=== PATIENT | female | born 1955 | race Caucasian/White ===

== ENCOUNTER 2018-12-05 09:00 | Outpatient (CLI) | payer OTHER, SELFPAY ==
[2018-12-05 11:35] LABS: Cholesterol 204 mg/dL (50-200); HDL Cholesterol 48 mg/dL (40-60); LDL CHOLESTEROL 132 mg/dL (<100); TSH (W/Ref FT4) 2.69 uIU/mL (0.358-3.74); Triglyceride 97 mg/dL (30-150); Vitamin B12 454 pg/mL (193-986)
[2018-12-08 08:10] LABS: Vitamin D 25 Total 16.3 ng/ml (30-100)
== END 2018-12-05 09:20 ==
PROVIDERS: PCP Family Medicine; Visit Provider Family Medicine
DX: Z00.00 Encounter for general adult medical examination without abnormal findings (principal); I47.1 Supraventricular tachycardia; E55.9 Vitamin D deficiency, unspecified; K29.70 Gastritis, unspecified, without bleeding
CPT/HCPCS: 36415; 80061; 82306; 83721; 82607; 84443

== ENCOUNTER 2018-12-17 00:22 | Outpatient (CLI) | payer OTHER, SELFPAY ==
--- NOTE | 2018-12-17 08:20 | DI.MAMMO_ITS ---
SYMPTOM/DIAGNOSIS: SCREENING, Z12.31 MAMMOGRAMS: Mammograms were interpreted according to the usual protocol including computer analysis with CAD system, tomosynthesis and C view imaging. The breast tissue is of moderate radiodensity. There is no mass. There are no suspicious calcifications and there has been no significant interval change when compared with prior images. SUMMARY: No evidence of malignancy. Category 1. Yearly screening mammography is recommended. Breast density, Category B. SA ASSESSMENT OF FINDINGS: Negative. Category 1. Patient will receive a letter notifying them of these results. BI-RADS category B. There are scattered areas of fibroglandular density.
== END 2018-12-17 00:42 ==
PROVIDERS: PCP Family Medicine; Visit Provider Family Medicine
DX: Z12.31 Encounter for screening mammogram for malignant neoplasm of breast (principal)
CPT/HCPCS: 77063; 77067

== ENCOUNTER 2018-12-24 06:57 | Day surgery (SDC) | payer OTHER, SELFPAY ==
--- NOTE | 2018-12-24 06:55 | ENDO_ITS ---
Date of service: 12/24/18 Time of Service: 09:42 Endoscopy Report DATE OF PROCEDURE: 12/24/18 PRE-OP DIAGNOSIS: Colon Cancer Screening, Family history of colon cancer and GERD POST-OP DIAGNOSIS: same (Schatzki's ring, multiple polyps in the stomach) PROCEDURE: 1. EGD with biopsy 2. Colonoscopy SURGEON: Madelyn Martinez ANESTHESIA: other (General/ ASA 2/ Rose Monroy CRNA) ESTIMATED BLOOD LOSS: 3 PATHOLOGY: other (Gastric polyps, antrum bx, GE junction bx) COMPLICATIONS: None DISPOSITION: same day INDICATIONS: Mrs. Sandy is a pleasant 63 year old female who was seen in the office for a screening colonoscopy. her last Colonoscopy was in 2009 and was normal. She also has GERD and needs an EGD. Risks, benefits and complications have been reviewed. Complications include but are not limited to bleeding, pain, perforation, missed small lesion/polyp, sore throat, aspiration and adverse reaction to the medications. Questions were entertained and answered to their satisfaction and they wished to proceed. No guarantees were given or implied. PREP: Miralax/Dulcolax PROCEDURE START TIME: :42 PROCEDURE END TIME: 10:21 COLONOSCOPY RETRACTION TIME: 13 minutes FINDINGS: Multiple benign polyps in the stomach most likely from PPI use Schatzki's ring and small hiatal hernia Normal duodenum Normal colon PROCEDURE DESCRIPTION: After informed consent was obtained the patient was take to the procedure room and placed in a supine position. Monitors were applied and a time out was done. The patients name, date of , procedure type, allergies to medications and metal in their body was reviewed. A bite block was placed and the patient was sedated. Once sedated and comfortable the gastroscope was advanced through the oropharynx which was grossly normal into the esophagus. The proximal and mid- esophagus were normal. In the distal esophagus there was a Schatzki's ring noted and a small hiatal hernia. The scope was advanced into the stomach and through the pylorus into the 3rd portion of the duodenum. The duodenum was noted to be normal. The scope was retracted back into the stomach and biopsies were done to rule out H. pylori. There were no ulcers. Multiple benign appearing polyps were noted in the stomach. 4 were biopsied. The scope was retro-flexed. The cardia and fundus were noted to be normal. There was a hiatal hernia noted. The scope was retracted back into the esophagus and biopsies were done of the GE junction to rule out Haas's. The Z line was regular. The GE junction was at 35 cm. The hiatal hernia was measured at approximately 3 cm. While the patient was still sedated they were placed in a left decubitous position. A rectal exam was done. External exam was normal. Internal exam revealed a normal sphincter tone and no palpable masses. The scope was then introduced and retro-flexed. No internal hemorrhoids were identified. The scope was then advanced to the cecum without difficulty. The TI and appendiceal orifice were identified. The prep was good. The scope was then slowly retracted over 13 minutes back into the rectum. The scope was removed and the patient was woken up and taken back to Same day surgery in stable condition. The patient tolerated the procedure well and there were no immediate complications. Follow up: Follow up in 5 years for a colonoscopy due to her family history of colon Cancer in her brother. No scheduled RGD unless she has new symptoms.
--- NOTE | 2018-12-24 06:55 | W.PM.DSUDISC ---
Discharge Plan Disposition Patient Disposition: HOME Condition: Good Discharge Details Reason For Visit: Colon Cancer Screening and GERD Attending Provider: Madelyn Martinez Primary Care Provider: Kirstie Nation Home Meds and New Rx's Prescriptions: Continued triamcinolone acetonide 15 GM cream 1 appful Topical BID PRNQty: 30 RF: 0 pantoprazole [Protonix] 40 mg tablet,delayed release (DR/EC) 40 mg PO DAILY Qty: 90 RF: 12 cholecalciferol (vitamin D3) 50,000 unit capsule 50,000 unit PO .three times week Qty: 36 RF: 0 Discontinued polyethylene glycol 3350 17 gram/dose Powder 3,350 g PO RF: 0 bisacodyl 5 mg Tablet 5 mg PO ONCE RF: 0 Discharge Instructions Instructions: Colonoscopy (DC), Upper Endoscopy (DC) Additional Instructions: Findings: benign polyps in the stomach, small hiatal hernia, evidence of scarring in the esophagus normal colonoscopy Follow up: 5 years for next colonoscopy Please call if you develop: fevers >101.5 Nausea or Vomiting Abdominal pain that is not transient DAY SURGERY UNIT POST COLONOSCOPY INSTRUCTIONS 1. Because there will be medication in your system for the next 24 hours, you may feel a little sleepy. Your coordination will be affected. Therefore: a. Do not drive or operate dangerous equipment for 24 hours. b. Do not drink alcohol beverages for 24 hours (not even beer). c. Plan to go home and rest for the day. 2. Generally there are no restrictions on your activity after a day or so has gone by, but you may feel a bit fatigued for a few days. 3 After you arrive home you may have a light meal and return to a normal diet as you can tolerate it without feeling sick to your stomach. 4. After surgery, you may feel pain or discomfort. This should be only transient, but if it persists please contact your doctor. 5. If there are any questions regarding the findings of your procedure, please feel free to contact your doctor. 6. If you are unable to contact your doctor with a problem, contact the hospital at [phone]. 7. Continue all your regular medications unless directed otherwise. I understand the above instructions and have no questions. Signature of Patient or Responsible Adult Escort Date/Time Name of Responsible Adult Escort Signature of Nurse Date/Time Stand Alone Forms: DSU Post EGD Instructions, Claudy Garcia (DSU) Activity:: Activity as Tolerated Diet:: As Tolerated Discharge Orders Discharge Orders: Discharge Order (Routine); Ordered 12/24/18 Ordered By: Madelyn Martinez DS: Diagnosis Discharge Diagnosis (1) H/O esophagogastroduodenoscopy: Status: Chronic (2) S/P colonoscopy: Status: Acute
[2018-12-24 07:18] VITALS: BP 142/94; PULSE 85; RESP 16; TEMP 36.8; O2SAT 93
[2018-12-24] MEDS: Lactated Ringers 1,000 ML 80 ML IV (07:41)
[2018-12-24] MEDS: Sodium Citrate 30 ML CUP (09:35)
--- NOTE | 2018-12-24 09:45 | STOM_PTH ---
PATIENT: Latricia Sandy LOC: [facility] U#:[id number] AGE/SX: 63/F ROOM: RE12/24/[address]: Madelyn Martinez MD : 1955 BED: DIS: 12/24/2018 SPEC #: [id number] RECD: 12/24/18 12:44 STATUS: LUZMA RE #: [id number] YOLIS: 12/24/18 09:[address]: Madelyn Martinez DEPT: Surgical Specimen RECD BY: Fiona Melton ENTERED: 12/24/18 12:46 SP TYPE: STOMACH OTHR DR: Kirstie Nation MD, DC Tissues: 1 - STOMACH BIOPSY 2 - STOMACH BIOPSY 3 - ESOPHAGUS BIOPSY Procedures: GROSS AND MICRO LEVEL 4 Comments: [id number]
[2018-12-24 11:00] VITALS: BP 154/82; PULSE 62; RESP 18; TEMP 36.6; O2SAT 94
== END 2018-12-24 11:26 | disposition home or self-care (01) ==
PROVIDERS: PCP Family Medicine; Visit Provider Surgery
PROC: (CPT 43239; principal; 2018-12-24 08:30)
DX: Z12.11 Encounter for screening for malignant neoplasm of colon (principal); Z80.0 Family history of malignant neoplasm of digestive organs; K21.9 Gastro-esophageal reflux disease without esophagitis; K20.9 Esophagitis, unspecified; K31.89 Other diseases of stomach and duodenum; K31.7 Polyp of stomach and duodenum; K44.9 Diaphragmatic hernia without obstruction or gangrene
CPT/HCPCS: 43239; 45378; 88305

== ENCOUNTER 2019-04-24 11:52 | Outpatient (REF) | payer OTHER, SELFPAY ==
--- NOTE | 2019-04-24 11:00 | PAPFT_PTH ---
PATIENT: Latricia Sandy LOC: [facility] U#:[id number] AGE/SX: 63/F ROOM: RE04/24/[address]: MORGAN Montoya : 1955 BED: DIS: 04/24/2019 SPEC #: [id number] RECD: 04/24/19 13:09 STATUS: LUZMA REIwona #: [id number] YOLIS: 04/24/19 11:[address]: Michelle Dickerson DEPT: [facility] Cytology RECD BY: Fiona Melton ENTERED: 04/24/19 13:09 SP TYPE: PAPFT OTHR DR: Kirstie Nation MD, DC Tissues: 1 - CX/ENDOCX FOR PAP SMEARS Procedures: PAP THIN PREP/UVM Screening HPV DNA PROBE Comments: [id number]
== END 2019-04-24 12:12 ==
LOC: LBN 11:52
PROVIDERS: PCP Family Medicine; Visit Provider Nurse Practitioner Family
DX: Z12.4 Encounter for screening for malignant neoplasm of cervix (principal); Z11.51 Encounter for screening for human papillomavirus (HPV)
CPT/HCPCS: 88142; 87624

== ENCOUNTER 2020-02-12 03:34 | Outpatient (CLI) | payer OTHER, SELFPAY ==
--- NOTE | 2020-02-12 06:45 | DI.MAMMO_ITS ---
EXAM: MG MAMMO SCREENING CLINICAL HISTORY: screening,Z12.39 TECHNIQUE: Bilateral full field digital CC and MLO mammographic images were obtained with 3D tomosyn thesis and utilizing computer aided detection (CAD). COMPARISON: Available for comparison. FINDINGS: Masses/Architectural Distortion: None seen. Microcalcifications: No suspicious pleomorphic-type are seen. Skin Thickening/Nipple Retraction: None. IMPRESSION: 1. No significant interval change with no specific features of malignancy noted. 2. Unless there is more urgent need, screening mammography is recommended, as per [place] [employer] guidelines. BI-RADS Category 1 - Negative Breast Density - Category B - Scattered areas of fibroglandular density A negative radiographic report should not delay biopsy if a dominant or clinically suspicious mass is present. Up to ten percent of cancers are not identified on mammography. A negative report may reinforce clinical impression. Adenosis and dense breasts may obscure an underlying neoplasm. False positive reports average 6 to 10%. Patient will receive a letter notifying them of these results.
== END 2020-02-12 03:54 ==
PROVIDERS: PCP Family Medicine; Visit Provider Family Medicine
DX: Z12.31 Encounter for screening mammogram for malignant neoplasm of breast (principal)
CPT/HCPCS: 77063; 77067

== ENCOUNTER 2020-11-21 03:44 | Outpatient (CLI) | payer OTHER, SELFPAY ==
[2020-11-21 14:36] LABS: Vitamin D 25 Total 32.5 ng/ml (30-100)
== END 2020-11-21 03:45 | disposition home or self-care (01) ==
LOC: LBO 03:44
PROVIDERS: PCP Family Medicine; Visit Provider Family Medicine
DX: E55.9 Vitamin D deficiency, unspecified (principal)
CPT/HCPCS: 36415; 82306

== ENCOUNTER 2021-02-17 01:51 | Outpatient (CLI) | payer OTHER, SELFPAY ==
--- NOTE | 2021-02-17 06:30 | DI.MAMMO_ITS ---
Exam(s) MAMMO SCREENING EXAM: MAMMO SCREENING CLINICAL HISTORY: screening.Z12.39 TECHNIQUE: Bilateral full field digital CC and MLO mammographic images were obtained with 3D tomosyn thesis and utilizing computer aided detection (CAD). COMPARISON: Available for comparison. FINDINGS: Masses/Architectural Distortion: None seen. Microcalcifications: No suspicious pleomorphic-type are seen. Skin Thickening/Nipple Retraction: None. IMPRESSION: 1. No significant interval change with no specific features of malignancy noted. 2. Unless there is more urgent need, screening mammography is recommended, as per [place] [employer] [employer] guidelines. BI-RADS Category 1 - Negative Breast Density - Category B - Scattered areas of fibroglandular density Breast density category C or D implies that the patient has dense breast tissue. Dense breast tissue is very common and is not abnormal but dense breast tissue can make it harder to find cancer on a ma mmogram. Also, dense breast tissue may increase their breast cancer risk. This information about the result of the mammogram report was provided to the patient to raise their awareness. Use this report when you speak with the patient about their risks for breast cancer, which includes their family hist ory. At that time, you may recommend for more screening tests (Ultrasound or MRI) as they might be us eful based on their risk. A negative radiographic report should not delay biopsy if a dominant or clinically suspicious mass is present. Up to ten percent of cancers are not identified on mammography. A negative report may reinforce clinical impression. Adenosis and dense breasts may obscure an underlying neoplasm. False positive reports average 6 to 10%. Patient will receive a letter notifying them of these results.
== END 2021-02-17 02:11 ==
PROVIDERS: PCP Family Medicine; Visit Provider Nurse Practitioner Family
DX: Z12.31 Encounter for screening mammogram for malignant neoplasm of breast (principal)
CPT/HCPCS: 77063; 77067

== ENCOUNTER 2022-03-16 01:20 | Outpatient (CLI) | payer OTHER, SELFPAY ==
--- OUTSIDE RECORDS SUMMARY | 2022-03-16 01:22 | XMS_ITS | Encounter Summary ---
:1955 Author Organization [facility] [place] [address] Care Team Providers Name Role Phone Kirstie Nation MD Primary Care Provider Reason for Visit Reason Onset Date Comments Public Health Screening 09/20/2020 test after kayla gallegos Encounter Details Date Type Department Care Team Description 09/20/2020 Telephone Public Health Katharine Harris, [facility] Health Screening [facility] RN (test aft er travel) [place] [address] Social History Tobacco Use Types Packs/Day Years Used Date Never Assessed Sex Assigned at Date Recorded Not on file documented as of this encounter Miscellaneous Notes Telephone Encounter - Katharine Sanchez RN - 09/20/2020 11:23 AM EST Telephone call placed/received to schedule covid 19 testing with patient. Ordering provider: Rolanda Rodgers Testing Facility: [facility] Date of Testin09/23/20 Time of Testin Symptoms: none / test after travel Is this the first test for Covid 19 No If no, please list date of previous test, result, and type of test (Molecular, Antigen, Antibody or unknown): 08/05/20 [facility] neg Resides in congregate care setting No Employee or Household Member of Employee Yes Healthcare Worker Yes documented in this encounter Plan of Treatment Not on filedocumented as of this encounter Visit Diagnoses Not on filedocumented in this encounter Care Teams Material Lister Relationship Specialty Start Date End Date Kirstie Nation MD PCP - General 01/12/[address] [place] [address] documented as of this encounter
--- OUTSIDE RECORDS SUMMARY | 2022-03-16 01:22 | XMS_ITS | Encounter Summary ---
:1955 Author Organization [facility] Address [address] [place] [address] Care Team Providers Name Role Phone Unknown, Provider Primary Care Provider Encounter Details Date Type Department Care Team Description 08/06/2001 Results Only [facility] - Consuelo Orellana NP conversion [address] [place] [address] Social History Tobacco Use Types Packs/Day Years Used Date Never Assessed Sex Assigned at Date Recorded Not on file documented as of this encounter Plan of Treatment Not on filedocumented as of this encounter Procedures Procedure Name Priority Date/Time Associated Diagnosis Comme nts CYTOPATHOLOGY Routine 08/06/2001 0:00 EST Results for this procedure are i n the results section . documented in this encounter Results CYTOPATHOLOGY (08/06/2001 0:00 EST) Pathology Report: CYTOPATHOLOGY REPORT [facility] Reports generated via electronic interface contain stacy ginal data; however they are lacking the format of the original re port. Caution should be taken when reading/interpreting unfo rmatted reports. Name: ? JENN SANDY ? Accession #: ? [id number] : ? 1955 (Age: 46) ??F ?Collect Date: ? 12/2000 Location: ? [facility] ? Receive Date : ? 08/07/2001 Provider: ?CONSUELO YUEN STAFF CYTOTECHNOLOGIST Copy to: ? Specimen/Source: ?ThinPrep Pap Test, Cervix/ Endocervix Last Menstrual Period: ? 07/28/01 Previous Gynecologic Pathology: ? Yes: 1994 atypia. Other: ? Additional clinical information: Asymptomatic cx polyp . ? SPECIMEN ADEQUACY ? Satisfactory for evaluation. GENERAL CATEGORIZATION ? Within Normal Limits ? Document reviewed and electronically signed by: ? Rose Duncan, [facility](ASCP) ? Report Date: ??08/11/2001 13:26 End of Report Specimen Performing Organization Address City/State/ZIP Code Phon e Number [facility] [address] [place] [address] SERVICES [facility] [address] [place] [address] documented in this encounter Visit Diagnoses Not on filedocumented in this encounter Care Teams Repair Table Operator Relationship Specialty Start Date End Date Unknown, Provider, PCP - General 07/01/09 documented as of this encounter
--- OUTSIDE RECORDS SUMMARY | 2022-03-16 01:22 | XMS_ITS | Encounter Summary ---
:[address] [facility] Address [address] [place] [address] Care Team Providers Name Role Phone Unknown, Provider Primary Care Provider Encounter Details Date Type Department Care Team Description 11/08/2014 Results Only [facility] Bing Coles, [address] [place] [address] [place], [place] [id number] (Wo rk) Social History Tobacco Use Types Packs/Day Years Used Date Never Assessed Sex Assigned at Date Recorded Not on file documented as of this encounter Plan of Treatment Not on filedocumented as of this encounter Procedures Procedure Name Priority Date/Time Associated Diagnosis Comme [facility] SURGICAL PATHOLOGY Routine 11/08/2014 9:20 EDT Re sults for this procedure are i n the results section. documented in this encounter Results SURGICAL PATHOLOGY (11/08/2014 9:20 EDT) Pathology Report: SURGICAL PATHOLOGY REPORT [facility] Reports generated via electronic interface conta in original data; [facility] however they are lacking the format of the original re port. SERVICES Caution should be taken when reading/interpreting unfo rmatted reports. Name: ? JENN SANDY ? Accession #: ? [id number] ? : ? 1955 (Age: 59) ??F ? Collect Date: ? 11/08/2014 ? Location: ? [facility] ? Receive Date: ? 015 ? Provider: BING BURROUGHS MD Copy to: KSENIA TAYLOR MD ? Final Pathologic Diagnosis: A. STOMACH, POLYP, BIOPSY: - ??Fragments of fundic gland polyp. - ??No evidence of Helicobacter pylori on H&E. B. GASTROESOPHAGEAL JUNCTION, BIOPSY: - ??Squamous mucosa with features of reflux esophagiti s. - ??Adjoining cardia type mucosa without diagnostic al teration. Document reviewed and electronically signed by: HITESH BROTHERS MD Report ??Date: 11/11/2014 09:25 By the signature above, the attending physician certif ies that he/she has personally conducted a gross and/or microscopic examin ation of the described specimens and rendered or confirmed the above diagnosi s. Specimen(s) Received: A. ??Gastric polyp B. ??GE junction Clinical History: Cramping, abdominal pain, nausea Gross Description: A. ?Received in formalin labelled with proper p atient identification (initials R, L) and gastric polyp is a single pink-macdonald tissue fragment (0.4 x 0.2 x 0.2 cm). Submitted intact in A1. B. ?Received in formalin labelled with proper p atient identification (initials R, L) and GE junc tion are two white tissues (0.4 x 0.2 x 0.2 cm and 0.7 x 0.3 x 0.2 cm). Entirely submitted in B1. Tamra Pichardo 11/09/2014 1:21 PM End of Report Specimen Performing Organization Address City/State/ZIP Code Phon e Number [facility] [address] [place] [id number] SERVICES documented in this encounter Visit Diagnoses Not on filedocumented in this encounter Care Teams Lead Shop Operator Relationship Specialty Start Date End Date Unknown, Provider, PCP - General 07/01/09 11/09/14 documented as of this encounter
--- OUTSIDE RECORDS SUMMARY | 2022-03-16 01:22 | XMS_ITS | Encounter Summary ---
:1955 Author Organization [facility] Address [address] [place] [address] Care Team Providers Name Role Phone Unknown, Provider Primary Care Provider Encounter Details Date Type Department Care Team Description 12/10/2011 Results Only [facility] Consuelo Grijalva, [facility] Laboratory Services - [address] [address] Social History Tobacco Use Types Packs/Day Years Used Date Never Assessed Sex Assigned at Date Recorded Not on file documented as of this encounter Plan of Treatment Not on filedocumented as of this encounter Procedures Procedure Name Priority Date/Time Associated Diagnosis Comme nts PAP TEST- RESULT Routine 12/10/2011 0:00 EDT Resu lts for this ONLY procedure are i n the results section. documented in this encounter Results PAP TEST- RESULT ONLY (12/10/2011 0:00 EDT) Pathology Report: CYTOPATHOLOGY REPORT [facility] Reports generated via electronic interface contain stacy ginal data; however they are lacking the format of the original re port. Caution should be taken when reading/interpreting unfo rmatted reports. Name: ? JENN SANDY ? Accession #: ? [id number] ? : ? 1955 (Age: 56) ??F ?Collect Da te: ? 12/10/2011 ? Location: ? [facility] ? Receive Date: ? 012 ? Provider: CONSUELO GRIJALVA CLINICAL MATERIAL HANDLER Copy to: KSENIA TAYLOR MD ? Final Report SPECIMEN ADEQUACY ? Satisfactory for Evaluation - transformation zone component present GENERAL CATEGORIZATION ? Negative for Intraepithelial Lesion or Malignan cy ?? Last Menstural Period: 12/10/11 Specimen/Source: ??Pap Test, Cervix/Endocervix, ThinPr ep Imaging System with manual evaluation Document reviewed and electronically signed by: ? Shahnaz Sharif, [place](ASCP) ? Report ??Date: 12/18/2011 10:06 HPV with Pap Test ? Date Ordered: ? 12/18/2011 ? Status: ?? Signed Out ?Date Complete: ? 12/20/2011 ? By: ??S ystem Interface ? Date Reported: ? 12/20/2011 ? Interpretation RESULT: Negative for HPV. No E6 or E7 mRNA is detected from HPV types 16,18,31,3 3,35, 39,45,51,52,56,58,59,66, and 68 by insurance sales assistant media roberto amplification. Comments Document reviewed and electronically signed by: ? System Interface ? Report date: 12/20/2011 By the signature above, the attending physician certif ies that he/she has personally conducted a gross and/or microscopic examin ation of the described specimens and rendered or confirmed the above diagnosi s. End of Report Specimen Performing Organization Address City/State/ZIP Code Phon e Number [facility] [address] [place] [address] SERVICES [facility] [address] [place] [address] documented in this encounter Visit Diagnoses Not on filedocumented in this encounter Care Teams Pattern Puncher Relationship Specialty Start Date End Date Unknown, Provider, PCP - General 07/01/09 11/09/14 documented as of this encounter
--- OUTSIDE RECORDS SUMMARY | 2022-03-16 01:22 | XMS_ITS | Encounter Summary ---
:1955 Author Organization [facility] [place] [address] Care Team Providers Name Role Phone Kirstie Nation MD Primary Care Provider Reason for Visit Reason Onset Date Comments Triage 08/01/2020 COVID for return to work Encounter Details Date Type Department Care Team Description 08/01/2020 Telephone [facility] Dayanara Wilson Triag e (COVID for return [facility] RN to work) [place] [address] Social History Tobacco Use Types Packs/Day Years Used Date Never Assessed Sex Assigned at Date Recorded Not on file documented as of this encounter Miscellaneous Notes Telephone Encounter - Dayanara Wilson RN - 08/01/2020 9:45 AM EST Telephone call placed/received to schedule covid 19 testing with patient. Ordering provider: Rolanda Rodgers APRN Testing Facility: [facility] Date of Testin08/05/20 Time of Testin Symptoms: asymptomatic-needs to return to work after travel Is this the first test for Covid 19 Yes If no, please list date of previous test, result, and type of test (Molecular, Antigen, Antibody or unknown): Resides in congregate care setting No Employee or Household Member of Employee Yes, employee Healthcare Worker Yes documented in this encounter Plan of Treatment Not on filedocumented as of this encounter Visit Diagnoses Not on filedocumented in this encounter Care Teams Elevator Serviceman Relationship Specialty Start Date End Date Kirstie Nation MD PCP - General 01/12/[address] [place] [address] documented as of this encounter
--- OUTSIDE RECORDS SUMMARY | 2022-03-16 01:22 | XMS_ITS | Encounter Summary ---
:1955 Author Organization [facility] Address [address] [place] [address] Care Team Providers Name Role Phone Unknown, Provider Primary Care Provider Encounter Details Date Type Department Care Team Description 12/11/2004 Results Only [facility] - Michelle Santoyo od, ENVIRONMENTAL PLANNER [address] [place] [phone] (Wo rk) Social History Tobacco Use Types Packs/Day Years Used Date Never Assessed Sex Assigned at Date Recorded Not on file documented as of this encounter Plan of Treatment Not on filedocumented as of this encounter Procedures Procedure Name Priority Date/Time Associated Diagnosis Comme nts CYTOPATHOLOGY Routine 12/11/2004 0:00 EDT Results for this procedure are i n the results section . documented in this encounter Results CYTOPATHOLOGY (12/11/2004 0:00 EDT) Pathology Report: CYTOPATHOLOGY REPORT [facility] Reports generated via electronic interface contain stacy ginal data; however they are lacking the format of the original re port. Caution should be taken when reading/interpreting unfo rmatted reports. Name: ? LATRICIA SANDY ? Accession #: ? [id number] : ? 1955 (Age: 49) ??F ?Collect Date: ? 12/01 Location: ? [facility] ? Receive Date : ? 12/12/2004 Provider: ?MICHELLE CEDENO ENVIRONMENTAL PLANNER Copy to: ? Specimen/Source: ?ThinPrep Pap Test, Cervix/ Endocervix Last Menstrual Period: ? 11/28/04 Other: ? Additional clinical information: 1993 Atypia - Cervica l polyp HPVA - HPV testing requested if ASC-US on the current ThinPrep Pap test. ? SPECIMEN ADEQUACY ? Satisfactory for Evaluation - transformation zone component absent GENERAL CATEGORIZATION ? Negative for Intraepithelial Lesion or Malignan cy ? Document reviewed and electronically signed by: ? BLAS Madrid(ASCP) ? Report Date: ??12/18/2004 08:33 End of Report Specimen Performing Organization Address City/State/ZIP Code Phon e Number [facility] [address] [place] [address] SERVICES [facility] [address] [place] [address] documented in this encounter Visit Diagnoses Not on filedocumented in this encounter Care Teams Heavy Equipment Operator Relationship Specialty Start Date End Date Unknown, Provider, PCP - General 07/01/09 11/09/14 documented as of this encounter
--- OUTSIDE RECORDS SUMMARY | 2022-03-16 01:22 | XMS_ITS | Encounter Summary ---
:1955 Author Organization [facility] Address [address] [place] [address] Care Team Providers Name Role Phone Unknown, Provider Primary Care Provider Encounter Details Date Type Department Care Team Description 11/08/2014 Hospital Encounter [facility]- Vicky Unknown, Provider, [facility] [address] [place] [address] [place] [address] (Work) [phone] Social History Tobacco Use Types Packs/Day Years Used Date Never Assessed Sex Assigned at Date Recorded Not on file documented as of this encounter Discharge Disposition Disposition Code Departure Means Destination Home or Self Snf documented in this encounter Plan of Treatment Not on filedocumented as of this encounter Visit Diagnoses Not on filedocumented in this encounter Care Teams Plumber Relationship Specialty Start Date End Date Unknown, Provider, PCP - General 07/01/09 documented as of this encounter
--- OUTSIDE RECORDS SUMMARY | 2022-03-16 01:22 | XMS_ITS | Encounter Summary ---
:1955 Author Organization [facility] Address [address] [place] [address] Care Team Providers Name Role Phone Unknown, Provider Primary Care Provider Encounter Details Date Type Department Care Team Description 08/10/2002 Results Only [facility] - Consuelo Orellana NP conversion [address] [place] [address] Social History Tobacco Use Types Packs/Day Years Used Date Never Assessed Sex Assigned at Date Recorded Not on file documented as of this encounter Plan of Treatment Not on filedocumented as of this encounter Procedures Procedure Name Priority Date/Time Associated Diagnosis Comme nts CYTOPATHOLOGY Routine 08/10/2002 0:00 EST Results for this procedure are i n the results section . documented in this encounter Results CYTOPATHOLOGY (08/10/2002 0:00 EST) Pathology Report: CYTOPATHOLOGY REPORT [facility] Reports generated via electronic interface contain stacy ginal data; however they are lacking the format of the original re port. Caution should be taken when reading/interpreting unfo rmatted reports. Name: ? JENN SANDY ? Accession #: ? [id number] : ? 1955 (Age: 47) ??F ?Collect Date: ? 0 05/2002 Location: ? [facility] ? Receive Date : ? 08/11/2002 Provider: ?CONSUELO YUEN FENDER FINISHER Copy to: ? Specimen/Source: ?ThinPrep Pap Test, Cervix/ Endocervix Last Menstrual Period: ? 07/30/02 Previous Gynecologic Pathology: ? Yes: 1993 atypia cervical polyp ? SPECIMEN ADEQUACY ? Satisfactory for Evaluation - transformation zone component present GENERAL CATEGORIZATION ? Negative for Intraepithelial Lesion or Malignan cy ? Document reviewed and electronically signed by: ? BLAS Hooker(ASCP) ? Report Date: ??08/12/2002 08:58 End of Report Specimen Performing Organization Address City/State/ZIP Code Phon e Number [facility] [address] [place] [address] SERVICES [facility] [address] [place] [address] documented in this encounter Visit Diagnoses Not on filedocumented in this encounter Care Teams Employee Benefits Attorney Relationship Specialty Start Date End Date Unknown, Provider, PCP - General 07/01/09 11/09/14 documented as of this encounter
--- OUTSIDE RECORDS SUMMARY | 2022-03-16 01:22 | XMS_ITS | Encounter Summary ---
:1955 Author Organization [facility] Address [address] [place] [address] Care Team Providers Name Role Phone Kirstie Nation MD Primary Care Provider Encounter Details Date Type Department Care Team Description 04/24/2019 Results Only [facility]- Michelle Baca, [facility] [phone] [facility] [address] (Wo rk) Social History Tobacco Use Types Packs/Day Years Used Date Never Assessed Sex Assigned at Date Recorded Not on file documented as of this encounter Plan of Treatment Not on filedocumented as of this encounter Procedures Procedure Name Priority Date/Time Associated Diagnosis Comme nts PAP TEST- RESULT Routine 04/24/2019 0:00 EDT Resu lts for this ONLY procedure are i n the results section. documented in this encounter Results PAP TEST- RESULT ONLY (04/24/2019 0:00 EDT) Pathology Report: CYTOPATHOLOGY REPORT [facility] Reports generated via electronic interface contain stacy ginal data; SERVICES however they are lacking the format of the original re port. Caution should be taken when reading/interpreting unfo rmatted reports. Name: ? JENN SANDY ? Accession #: ? [id number] ? : ? 1955 (Age: 63) ??F ?Collect Date: ? 04/24/2019 ? Location: ? [facility] ? Receive Date: ? 04/27/20 19 ? Provider: MICHELLE CEDENO LINUX NETWORK SYSTEMS ADMINISTRATOR Copy to: KIRSTIE NATION MD ? Final Report SPECIMEN ADEQUACY ? Satisfactory for Evaluation - assessment of transformation zone component not appl icable ( e.g. atrophy, vaginal sample, hysterectomy) GENERAL CATEGORIZATION ? Negative for Intraepithelial Lesion or Malignan cy ?? Last Menstrual Period: 2011 Specimen/Source: ??Pap Test, Cervix, ThinPrep Imaging System with manual evaluation Document reviewed and electronically signed by: ? Shahnaz Sharif, [place](ASCP) ? Report ??Date: 04/29/2019 11:31 HPV with Pap Test ? Date Ordered: ? 04/29/2019 ? Status: ?? Signed Out ?Date Complete: ? 04/30/2019 ? By: ??Sy stem Interface ? Date Reported: ? 04/30/2019 ? Interpretation RESULT: Negative for HPV. No E6 or E7 mRNA is detected from HPV types 16,18,31,3 3,35, 39,45,51,52,56,58,59,66, and 68 by tongue and groove machine setter media roberto amplification. Comments Document reviewed and electronically signed by: ? System Interface ? Report date: 04/30/2019 By the signature above, the attending physician certif ies that he/she has personally conducted a gross and/or microscopic examin ation of the described specimens and rendered or confirmed the above diagnosi s. End of Report Specimen Performing Organization Address City/State/ZIP Code Phon e Number [facility] [address] [place], [place] [address] SERVICES documented in this encounter Visit Diagnoses Not on filedocumented in this encounter Care Teams Nib Finisher Relationship Specialty Start Date End Date Kirstie Nation MD PCP - General 11/10/14 [address] [place] [address] documented as of this encounter
--- OUTSIDE RECORDS SUMMARY | 2022-03-16 01:22 | XMS_ITS | Encounter Summary ---
:1955 Author Organization [facility] Address [address] [place] [address] Care Team Providers Name Role Phone Unknown, Provider Primary Care Provider Encounter Details Date Type Department Care Team Description 01/01/2008 Results Only [facility] - Torres Johnston MD conversion [address] [place] [phone] Social History Tobacco Use Types Packs/Day Years Used Date Never Assessed Sex Assigned at Date Recorded Not on file documented as of this encounter Plan of Treatment Not on filedocumented as of this encounter Procedures Procedure Name Priority Date/Time Associated Diagnosis Comme nts SURGICAL PATHOLOGY Routine 01/01/2008 0:00 EDT Re sults for this procedure are i n the results section. documented in this encounter Results SURGICAL PATHOLOGY (01/01/2008 0:00 EDT) Pathology Report: SURGICAL PATHOLOGY REPORT [facility] Reports generated via electronic interface contain stacy ginal data; LAB however they are lacking the format of the original re port. Caution should be taken when reading/interpreting unfo rmatted reports. Name: ? JENN SANDY ? Accession #: ? [id number] ? : ? 1955 (Age: 52) ??F ? Collect Date: ? 01/01/2008 ? Location: ? [facility] ? Receive Date: ? 008 ? Provider: AUDRA JEFFREY MD Copy to: KSENIA TAYLOR MD ? Final Pathologic Diagnosis: ? Gastroesophageal junction, biopsy: 1. ?Squamous mu cosa with chronic inflammation and rare eosinophils. 2. ? Foveolar mucosa with no specific pathologic f eatures. Document reviewed and electronically signed by: CINDY BLANC MD Report ??Date: 01/06/2008 18:39 By the signature above, the attending physician certif ies that he/she has personally conducted a gross and/or microscopic examin ation of the described specimens and rendered or confirmed the above diagnosi s. Specimen(s) Received: ? Bx GE junction Clinical History: ? GERD, HH Gross Description: ? Received in Hollande' s fixative labelled Ruede and bx GE junction are two portions of macdonald-white so ft tissue measuring 0.2 x 0.1 x 0.1 cm and 0.4 x 0.2 x 0.1 cm. ??Submitted in toto in one cassette. ??(Radames cabrera)/[facility] End of Report Specimen Performing Organization Address City/State/ZIP Code Phon e Number [facility] [address] [place] [address] SERVICES [facility] [address] [place] [address] documented in this encounter Visit Diagnoses Not on filedocumented in this encounter Care Teams Metal Window Frame Maker Relationship Specialty Start Date End Date Unknown, Provider, PCP - General 07/01/09 11/09/14 documented as of this encounter
--- OUTSIDE RECORDS SUMMARY | 2022-03-16 01:22 | XMS_ITS | Encounter Summary ---
:1955 Author Organization [facility] [place] [address] Care Team Providers Name Role Phone Kirstie Nation MD Primary Care Provider Encounter Details Date Type Department Care Team Description 09/01/2020 Orders Only [facility] [address], [place] [address] [place] [address] [phone] (Wo rk) Social History Tobacco Use Types Packs/Day Years Used Date Never Assessed Sex Assigned at Date Recorded Not on file documented as of this encounter Plan of Treatment Not on filedocumented as of this encounter Visit Diagnoses Not on filedocumented in this encounter Care Teams Punch Finisher Relationship Specialty Start Date End Date Kirstie Nation MD PCP - General 01/12/[address] [place], [place] [address] documented as of this encounter
--- OUTSIDE RECORDS SUMMARY | 2022-03-16 01:22 | XMS_ITS | Encounter Summary ---
:1955 [place] [address] Care Team Providers Name Role Phone Kirstie Nation MD Primary Care Provider Encounter Details Date Type Department Care Team Description 01/12/2011 [place] [address] Social History Tobacco Use Types Packs/Day Years Used Date Never Assessed Sex Assigned at Date Recorded Not on file documented as of this encounter Plan of Treatment Not on filedocumented as of this encounter Visit Diagnoses Not on filedocumented in this encounter Care Teams Housing Case Manager Relationship Specialty Start Date End Date Kirstie Nation MD PCP - General 01/12/[address] [place], [place] [address] documented as of this encounter
--- OUTSIDE RECORDS SUMMARY | 2022-03-16 01:22 | XMS_ITS | Encounter Summary ---
:1955 Author Organization [facility] [place] [address] Care Team Providers Name Role Phone Kirstie Nation MD Primary Care Provider Encounter Details Date Type Department Care Team Description 08/02/2020 Public [facility] COVID[place] [address] Social History Tobacco Use Types Packs/Day Years Used Date Never Assessed Sex Assigned at Date Recorded Not on file documented as of this encounter Plan of Treatment Not on filedocumented as of this encounter Visit Diagnoses Diagnosis COVID-19 ruled out documented in this encounter Care Teams Strategic Partnership Manager Relationship Specialty Start Date End Date Kirstie Nation MD PCP - General 01/12/[address] [place], [place] [address] documented as of this encounter
--- OUTSIDE RECORDS SUMMARY | 2022-03-16 01:22 | XMS_ITS | Encounter Summary ---
:1955 Author Organization [facility] Address [address] [place] [address] Care Team Providers Name Role Phone Unknown, Provider Primary Care Provider Encounter Details Date Type Department Care Team Description 01/16/2006 Results Only [facility] - Consuelo Orellana NP conversion [address] [place] [address] Social History Tobacco Use Types Packs/Day Years Used Date Never Assessed Sex Assigned at Date Recorded Not on file documented as of this encounter Plan of Treatment Not on filedocumented as of this encounter Procedures Procedure Name Priority Date/Time Associated Diagnosis Comme nts CYTOPATHOLOGY Routine 01/16/2006 0:00 EDT Results for this procedure are i n the results section . documented in this encounter Results CYTOPATHOLOGY (01/16/2006 0:00 EDT) Pathology Report: CYTOPATHOLOGY REPORT [facility] Reports generated via electronic interface contain stacy ginal data; however they are lacking the format of the original re port. Caution should be taken when reading/interpreting unfo rmatted reports. Name: ? JENN SANDY ? Accession #: ? [id number] : ? 1955 (Age: 50) ??F ?Collect Date: ? 12/31 Location: ? [facility] ? Receive Date : ? 01/16/2006 Provider: ?CONSUELO YUEN DOCUMENT CONTROL CLERK Copy to: ? Specimen/Source: ? ThinPrep Pap Test, Cervix/Endocervix, processed on [employer] ThinPrep Imaging System, with manual evaluation Last Menstrual Period: ? 01/02/06 Other: ? Additional clinical information: Atypia 1994 cx. polyp s ? SPECIMEN ADEQUACY ? Satisfactory for Evaluation - transformation zone component present - scant squamous epithelial component secondary to exc essive blood GENERAL CATEGORIZATION ? Negative for Intraepithelial Lesion or Malignan cy ? Document reviewed and electronically signed by: ? Rose Duncan [facility](ASCP) ? Report Date: ??01/18/2006 12:38 End of Report Specimen Performing Organization Address City/State/ZIP Code Phon e Number [facility] [address] [place] [address] SERVICES [facility] [address] [place] [address] documented in this encounter Visit Diagnoses Not on filedocumented in this encounter Care Teams Buffing Wheel Presser Relationship Specialty Start Date End Date Unknown, Provider, PCP - General 07/01/09 documented as of this encounter
--- OUTSIDE RECORDS SUMMARY | 2022-03-16 01:22 | XMS_ITS | Encounter Summary ---
:1955 Author Organization [facility] Address [address] [place] [address] Care Team Providers Name Role Phone Kirstie Nation MD Primary Care Provider Encounter Details Date Type Department Care Team Description 12/24/2018 Hospital Encounter [facility]- Vicky Unknown, Provider, [facility] [address] [facility] [phone] [place] [address] (Work) [phone] Social History Tobacco Use Types Packs/Day Years Used Date Never Assessed Sex Assigned at Date Recorded Not on file documented as of this encounter Discharge Disposition Disposition Code Departure Means Destination Home or Self Skilled Nursing documented in this encounter Plan of Treatment Not on filedocumented as of this encounter Visit Diagnoses Not on filedocumented in this encounter Care Teams Medical Voucher Clerk Relationship Specialty Start Date End Date Kirstie Nation MD PCP - General 11/10/14 [address] [place], [place] [id number] documented as of this encounter
--- OUTSIDE RECORDS SUMMARY | 2022-03-16 01:22 | XMS_ITS | Encounter Summary ---
:1955 Author Organization [facility] Address [address] [place] [address] Care Team Providers Name Role Phone Unknown, Provider Primary Care Provider Encounter Details Date Type Department Care Team Description 07/29/2000 Results Only [facility] - Consuelo Orellana NP conversion [address] [place] [address] Social History Tobacco Use Types Packs/Day Years Used Date Never Assessed Sex Assigned at Date Recorded Not on file documented as of this encounter Plan of Treatment Not on filedocumented as of this encounter Procedures Procedure Name Priority Date/Time Associated Diagnosis Comme nts CYTOPATHOLOGY Routine 07/29/2000 0:00 EST Results for this procedure are i n the results section . documented in this encounter Results CYTOPATHOLOGY (07/29/2000 0:00 EST) Pathology Report: CYTOPATHOLOGY REPORT [facility] Reports generated via electronic interface contain stacy ginal data; however they are lacking the format of the original re port. Caution should be taken when reading/interpreting unfo rmatted reports. Name: ? JENN SANDY ? Accession #: ? [id number] : ? 1955 (Age: 45) ??F ?Collect Date: ? 07/04 Location: ? [facility] ? Receive Date : ? 07/30/2000 Provider: ?CONSUELO YUEN QUICK SERVICE TECHNICIAN Copy to: ? Specimen/Source: ?ThinPrep Pap Test, Cervix/ Endocervix Last Menstrual Period: ? 07/10/00 Previous Gynecologic Pathology: ? Yes: Atypia 1994 ? SPECIMEN ADEQUACY ? Satisfactory for evaluation. GENERAL CATEGORIZATION ? Within Normal Limits ? Document reviewed and electronically signed by: ? Veronica Sol, ??SCT(ASCP) ? Report Date: ??08/05/2000 09:39 End of Report Specimen Performing Organization Address City/State/ZIP Code Phon e Number [facility] [address] [place] [address] SERVICES [facility] [address] [place] [address] documented in this encounter Visit Diagnoses Not on filedocumented in this encounter Care Teams Fire Sprinkler Service Technician Relationship Specialty Start Date End Date Unknown, Provider, PCP - General 07/01/09 11/09/14 documented as of this encounter
--- OUTSIDE RECORDS SUMMARY | 2022-03-16 01:22 | XMS_ITS | Encounter Summary ---
:1955 Author Organization [facility] Address [address] [place] [address] Care Team Providers Name Role Phone Unknown, Provider Primary Care Provider Encounter Details Date Type Department Care Team Description 07/07/2007 Results Only [facility] - Consuelo Orellana NP conversion [address] [place] [address] Social History Tobacco Use Types Packs/Day Years Used Date Never Assessed Sex Assigned at Date Recorded Not on file documented as of this encounter Plan of Treatment Not on filedocumented as of this encounter Procedures Procedure Name Priority Date/Time Associated Diagnosis Comme nts CYTOPATHOLOGY Routine 07/07/2007 0:00 EST Results for this procedure are i n the results section . documented in this encounter Results CYTOPATHOLOGY (07/07/2007 0:00 EST) Pathology Report: CYTOPATHOLOGY REPORT [facility] Reports generated via electronic interface contain stacy ginal data; however they are lacking the format of the original re port. Caution should be taken when reading/interpreting unfo rmatted reports. Name: ? JENN SANDY ? Accession #: ? [id number] : ? 1955 (Age: 51) ??F ?Collect Date: ? 12/2006 Location: ? [facility] ? Receive Date : ? 07/08/2007 Provider: ?CONSUELO YUEN NURSE PRACTICAL Copy to: ? Specimen/Source: ? ThinPrep Pap Test, Cervix/Endocervix, processed on [employer] ThinPrep Imaging System, with manual evaluation Last Menstrual Period: ? 06/20/07 Hormonal/Contraceptive Status: ? Yes: Vasectomy Other: ? HPVA - HPV testing requested if ASC-US on the current ThinPrep Pap test. ? SPECIMEN ADEQUACY ? Satisfactory for Evaluation - transformation zone component present GENERAL CATEGORIZATION ? Negative for Intraepithelial Lesion or Malignan cy ? Document reviewed and electronically signed by: ? BLAS Jung(ASCP) ? Report Date: ??07/10/2007 13:40 End of Report Specimen Performing Organization Address City/State/ZIP Code Phon e Number [facility] [address] [place] [address] SERVICES [facility] [address] [place] [address] documented in this encounter Visit Diagnoses Not on filedocumented in this encounter Care Teams Brake Adjuster Relationship Specialty Start Date End Date Unknown, Provider, PCP - General 07/01/09 11/09/14 documented as of this encounter
--- OUTSIDE RECORDS SUMMARY | 2022-03-16 01:22 | XMS_ITS | Encounter Summary ---
:1955 Author Organization [facility] [place] [address] Care Team Providers Name Role Phone Kirstie Nation MD Primary Care Provider Encounter Details Date Type Department Care Team Description 01/12/2011 Orders Only Occupational Medicine at Helen Dumont APRN [facility] Betzaida parrish [place] [address] [place] [address] [phone] (Wo rk) Social History Tobacco Use Types Packs/Day Years Used Date Never Assessed Sex Assigned at Date Recorded Not on file documented as of this encounter Plan of Treatment Pending Results Name Type Priority Associated Diagnoses Date/Ti me QUANTIFERON-TB GOLD Lab Routine 01/13/20 11 8:21 AM EDT documented as of this encounter Procedures Procedure Name Priority Date/Time Associated Diagnosis Comme nts QUANTIFERON-TB GOLD Routine 01/12/2011 8:21 AM Re sults for this EDT procedure are i n the results section. documented in this encounter Results QUANTIFERON-TB GOLD (01/12/2011 8:21 AM EDT) [facility] Method Time Signature Quantiferon TB Negative Negative [facility] Comment: M. tuberculosis (TB) infection NOT likel y A negative QuantiFERON-TB Gold IT result does not preclude the possibility of M. tuberculosis infection or tuberculosis disease: false negative results can be due to sta ge of infection (e.g., specimen obtained prior to the development of mike lular immune response), co-morbid conditions which affect immune function, or other individual immunological factors. The performance of the QuantiFERON-TB Go ld IT test has not been extensively evaluated with specimens from the follow ing groups of individuals: 1. Individuals who have impaired or alt ered immune function such as those who have HIV infection or AIDS, those who mason ve transplantation managed with immunosuppressive treatment or others wh o receive immunosuppressive drugs (e.g., corticosteroids, methotrexate, az athioprine, cancer chemotherapy), and those who have other clinical conditions : diabetes, silicosis, chronic renal failure, hematological disorders (e.g., leukemia and lymphomas), and other specific malignancies (e.g., carcinoma o f the head or neck and lung). 2. Individuals younger than age 17 year s. 3. women. As of 01-09-10 the QuantiFERON-TB Gold IT assay will be performed in the [facility]. Please call , press 4; with questions. Specimen Anatomical Collection Method Collection Time Receive d Time (Source) Location / / Volume Laterality Blood specimen 01/12/2011 8:21 AM 011 8:21 (specimen) EDT AM EDT Helen Dumont APRN CHEMISTRY ORDERABLES Performing Organization Address City/State/ZIP Code Phon e Number [address] LABORATORY [facility] documented in this encounter Visit Diagnoses Not on filedocumented in this encounter Care Teams Software Quality Engineer Relationship Specialty Start Date End Date Kirstie Nation MD PCP - General 01/12/[address] [place] [address] documented as of this encounter
--- OUTSIDE RECORDS SUMMARY | 2022-03-16 01:22 | XMS_ITS | Encounter Summary ---
:1955 [place] [address] Care Team Providers Name Role Phone Kirstie Nation MD Primary Care Provider Encounter Details Date Type Department Care Team Description 08/06/2020 Telephone [facility] Kassandra Shook [place] [address] Social History Tobacco Use Types Packs/Day Years Used Date Never Assessed Sex Assigned at Date Recorded Not on file documented as of this encounter Miscellaneous Notes Telephone Encounter - Sarah Shook CCMA - 08/06/2020 9:36 AM EST Telephone call placed to let the patient know with the covid19 test done. Test results is negative. Patient no further questions asked. documented in this encounter Plan of Treatment Not on filedocumented as of this encounter Visit Diagnoses Not on filedocumented in this encounter Care Teams Rim Turning Finisher Relationship Specialty Start Date End Date Kirstie Nation MD PCP - General 01/12/[address] [place], [place] [id number] documented as of this encounter
--- OUTSIDE RECORDS SUMMARY | 2022-03-16 01:22 | XMS_ITS | Encounter Summary ---
:1955 Author Organization [facility] Address [address] [place] [address] Care Team Providers Name Role Phone Unknown, Provider Primary Care Provider Encounter Details Date Type Department Care Team Description 06/09/2010 Results Only [facility] Francesco Bill MD Laboratory Services - [address] [place] [address] [address] [place] [address] [phone] Social History Tobacco Use Types Packs/Day Years Used Date Never Assessed Sex Assigned at Date Recorded Not on file documented as of this encounter Plan of Treatment Not on filedocumented as of this encounter Procedures Procedure Name Priority Date/Time Associated Diagnosis Comme [facility] SURGICAL PATHOLOGY Routine 06/09/2010 0:00 EDT Re sults for this procedure are i n the results section. documented in this encounter Results SURGICAL PATHOLOGY (06/09/2010 0:00 EDT) Pathology Report: SURGICAL PATHOLOGY REPORT ? NATHANAEL ADAM Reports generated via [employer] [facility] interface contain original data; ? LAB however they are lacking the format of the original report. ? Caution should be taken when reading/interpreting unformatted reports. ? Name: ? RUEDE, JENN ? Accession #: ? [id number] ? : ? 1955 (Age: 54) ??F ? Collec t Date: ? 06/09/2010 ? Location: ? [facility] ? R eceive Date: ? 06/10/2010 ? Provider: FRANCESCO WALKO MD ? Copy to: KSENIA M DOBBERTIN M D ? Final Pathologic Diagnosis: ? A. ?Stomach, sherie dy, biopsy: ? 1. ?Oxyntic muc vikash with no specific pathologic features. ? B. ?Stomach, fu ndus, polyp, biopsy: ? 1. ?Fundic glan d polyp. ? C. ?Rectum, jeremy yp, biopsy: ? 1. ?Polypoid co lonic mucosa. ??See comment. ? Comment: ? Deeper levels were ex amined on specimen (C). ??(Dr. Camarena)/kmm ? Document reviewed and electr onically signed by: ? ABDELMONEM ELHOSSEINY MD ? Report ??Date: 06/13/2010 16 :57 ? By the signature above, the attending physician certifies that he/she has ? personally conducted a gross and/or microscopic examination of the described ? specimens and rendered or co nfirmed the above diagnosis. ? Specimen(s) Received: ? A. ?Gastric bod y random bx ? B. ? Fundic gland polyp ? C. ? Rectal polyp ? Clinical History: ? Hx GERD, Yvan's r ing; A+B ??EGD; C - colonoscopy ? Gross Description: ? Received in Ben' s labelled Jenn Sandy and bx gastric body random are two macdonald-pink tissues juan josé suring 0.4 x 0.2 x 0.2 cm and 0.5 x 0.2 x 0.1 cm. ?? The specimens are submitted entirely as (A). ? Received in Ben's label led Jenn Sandy and fundic gland polyp is a ? macdonald-pink tissue measuring 0. 2 x 0.2 x 0.1 cm. ??The specimen is submitted ? entirely as (B). ? Received in Ben's label led Ruenrique, Jenn and rectal polyp is a macdonald-pink tissue measuring 0.2 x 0.2 x 0.2 cm. ??The specimen is submitted entirely as (Aleksey). /porsche ? End of Report ? Specimen Performing Organization Address City/State/ZIP Code Phon e Number [facility] [address] [place] [address] SERVICES [facility] [address] [place] [address] documented in this encounter Visit Diagnoses Not on filedocumented in this encounter Care Teams Hardscape Foreman Relationship Specialty Start Date End Date Unknown, Provider, PCP - General 07/01/09 documented as of this encounter
--- OUTSIDE RECORDS SUMMARY | 2022-03-16 01:22 | XMS_ITS | Encounter Summary ---
:1955 Author Organization [facility] Address [address] [place] [address] Care Team Providers Name Role Phone Kirstie Nation MD Primary Care Provider Encounter Details Date Type Department Care Team Description 12/24/2018 Results Only [facility]- Bing Coles, [address] [place] [address] [place] [address] (Wo rk) Social History Tobacco Use Types Packs/Day Years Used Date Never Assessed Sex Assigned at Date Recorded Not on file documented as of this encounter Plan of Treatment Not on filedocumented as of this encounter Procedures Procedure Name Priority Date/Time Associated Diagnosis Comme [facility] SURGICAL PATHOLOGY Routine 12/24/2018 15:40 Resul ts for this EDT procedure are i n the results section. documented in this encounter Results SURGICAL PATHOLOGY (12/24/2018 15:40 EDT) Pathology Report: SURGICAL PATHOLOGY REPORT [facility] Reports generated via electronic interface conta in original data; [facility]ENTER LAB[facility] however they are lacking the format of the original re port. SERVICES Caution should be taken when reading/interpreting unfo rmatted reports. Name: ? JENN SANDY ? Accession #: ? [id number] ? : ? 1955 (Age: 63) ??F ? Collect Date: ? 12/24/2018 ? Location: ? [facility] ? Receive Date: ? 12/25/19 19 ? Provider: BING BURROUGHS MD Copy to: KIRSTIE NATION MD ? Final Pathologic Diagnosis: A. STOMACH, ANTRUM, BIOPSY: - Gastric antral mucosa showing reactive changes. - Gastric oxyntic mucosa showing no specific pathologi c features. B. STOMACH, POLYPS X4, BIOPSIES: - Fundic gland polyps. C. ESOPHAGUS, GASTROESOPHAGEAL JUNCTION, BIOPSIES: - Squamocolumnar mucosal tissue showing chronic inflam mation and reactive changes. - Negative for intestinal metaplasia. Negative for dys plasia. Document reviewed and electronically signed by: ROMMEL HECK MD Report ??Date: 12/27/2018 11:08 By the signature above, the attending physician certif ies that he/she has personally conducted a gross and/or microscopic examin ation of the described specimens and rendered or confirmed the above diagnosi s. Specimen(s) Received: A. ??Antrum B. ??Gastric polyps (4) C. ??GE junction bxs Clinical History: GERD, fam hx of colon Ca Gross Description: A. ?Received in formalin labelled with proper p atient identification (initials R, L) and antrum are two macdonald irregular tissues averaging 0.3 x 0.3 x 0.2 cm. Entirely submitted in A1. B. ?Received in formalin labelled with proper p atient identification (initials R, L) and gastric polyps are four macdonald nodular tissues ranging from 0.2 x 0.2 x 0.1 cm to 0.3 x 0.2 x 0.2 cm. Entirely sub mitted in B1. C. ?Received in formalin labelled with proper p atient identification (initials R, L) and GE junction are three macdonald and gr ay irregular and membranous tissues ranging from 0.2 x 0.2 x 0.1 cm to 0.4 x 0.2 x 0.1 cm. Entirely submitted in C1. GISSEL Smith (ASCP) 12/24/2018 4:14 PM End of Report Specimen Performing Organization Address City/State/ZIP Code Phon e Number [facility] [address] [place] [address] SERVICES documented in this encounter Visit Diagnoses Not on filedocumented in this encounter Care Teams Set Up Operator Tool Relationship Specialty Start Date End Date Kirstie Nation MD PCP - General 11/10/14 [address] [place] [address] documented as of this encounter
--- OUTSIDE RECORDS SUMMARY | 2022-03-16 01:22 | XMS_ITS | Encounter Summary ---
:1955 [place] [address] Care Team Providers Name Role Phone Kirstie Nation MD Primary Care Provider Reason for Visit Reason Onset Date Comments Results 09/24/2020 COVID Encounter Details Date Type Department Care Team Description 09/24/2020 Telephone [facility] Inessa Singh, RN Results (COVID) [place] [address] Social History Tobacco Use Types Packs/Day Years Used Date Never Assessed Sex Assigned at Date Recorded Not on file documented as of this encounter Miscellaneous Notes Telephone Encounter - Inessa Singh, RN - 09/24/2020 7:32 AM EST Called with negative Covid test results. Patient not on quarantine at this time. Reviewed [facility] [place] Work Today Guidelines documented in this encounter Plan of Treatment Not on filedocumented as of this encounter Visit Diagnoses Not on filedocumented in this encounter Care Teams Prevention Coordinator Relationship Specialty Start Date End Date Kirstie Nation MD PCP - General 01/12/[address] [place], [place] [id number] documented as of this encounter
[2022-03-16 12:42] LABS: Hemoglobin A1C 6.2 % (<5.7)
[2022-03-16 13:19] LABS: ALT 37 U/L (14-59); AST 28 U/L (15-37); Albumin 3.7 g/dL (3.4-5.0); Alkaline Phosphatase 99 U/L (46-116); BUN 17 mg/dL (7-18); Bilirubin, Total 0.4 mg/dL (0.2-1.0); Calcium 8.6 mg/dL (8.5-10.1); Calculated LDL 108 mg/dL (<100); Chloride 106 mmol/L (98-107); Cholesterol 178 mg/dL (<200); Estimated GFR 55.82 (mL/min/1.73m2); Glucose 105 mg/dL (74-106); HDL Cholesterol 48 mg/dL (40-60); Potassium 3.6 mmol/L (3.5-5.1); Sodium 142 mmol/L (136-145); TSH (W/Ref FT4) 2.68 uIU/mL (0.36-3.74); Total Protein 7.2 g/dL (6.4-8.2); Triglyceride 112 mg/dL (<150); Vitamin B12 296 pg/mL (193-986)
== END 2022-03-16 01:21 | disposition home or self-care (01) ==
LOC: LOS 01:21
PROVIDERS: PCP Family Medicine; Visit Provider Family Medicine
DX: Z00.00 Encounter for general adult medical examination without abnormal findings (principal); E11.9 Type 2 diabetes mellitus without complications; I10 Essential (primary) hypertension
CPT/HCPCS: 36415; 80053; 80061; 82607; 83036; 84443

== ENCOUNTER 2022-03-23 09:19 | Outpatient (REF) | payer OTHER, SELFPAY ==
--- NOTE | 2022-03-23 08:30 | PAPFT_PTH ---
PATIENT: Latricia Sandy LOC: [facility] U#:[id number] AGE/SX: 66/F ROOM: RE03/23/[address]: MORGAN Montoya : 1955 BED: DIS: 03/23/2022 SPEC #: [id number] RECD: 03/23/22 13:12 STATUS: LUZMA REQ #: [id number] YOLIS: 03/23/22 08:[address]: Michelle Dickerson DEPT: [facility] Cytology RECD BY: Fiona Melton ENTERED: 03/23/22 13:13 SP TYPE: PAPFT OTHR DR: Kirstie Nation MD, DC Tissues: 1 - CX/ENDOCX FOR PAP SMEARS Procedures: PAP THIN PREP/U[facility] Screening HPV DNA PROBE Comments: [id number]
== END 2022-03-23 09:20 | disposition home or self-care (01) ==
LOC: LBN 09:19
PROVIDERS: PCP Family Medicine; Visit Provider Nurse Practitioner Family
DX: Z12.4 Encounter for screening for malignant neoplasm of cervix (principal); Z11.51 Encounter for screening for human papillomavirus (HPV)
CPT/HCPCS: 88142; 87624

== ENCOUNTER → 2022-04-27 00:03 | Outpatient (CLI) | payer OTHER, SELFPAY ==
--- NOTE | 2022-04-27 07:45 | DI.MAMMO_ITS ---
Exam(s) MAMMO SCREENING EXAM: MAMMO SCREENING CLINICAL HISTORY: screening. TECHNIQUE: Bilateral full field digital CC and MLO mammographic images were obtained with 3D tomosyn thesis and utilizing computer aided detection (CAD). COMPARISON: Prior mammograms were reviewed, the most recent being January 2021. FINDINGS: There has been no significant change in appearance and distribution of the fibroglandular tissue There are no CAD designations There are no new spiculated masses nor malignant appearing microcalcification groups. There is no significant architectural distortion nor skin thickening-retraction. IMPRESSION: No radiographic evidence of malignancy. BI-RADS Category 1 - Negative Breast Density - Category B - Scattered areas of fibroglandular density Breast density Category C or D implies that the patient has dense breast tissue. Dense breast tissue can make it harder to find cancer on a mammogram. Dense breast tissue is also associated with an incr eased risk of breast cancer. This information about the result of the mammogram report was provided to the patient to raise their awareness. Use this report when you speak with the patient about their risks for breast cancer, which includes their family history. At that time, you may recommend additional screening tests (Ultrasoun d or MRI) as these tests may add significant information. A negative radiographic report should not delay biopsy if a dominant or clinically suspicious mass is present. Up to ten percent of cancers are not identified on mammography. A negative report may reinforce clinical impression. Adenosis and dense breasts may obscure an underlying neoplasm. False positive reports average 6 to 10%. Patient will receive a letter notifying them of these results.
== END ==
PROVIDERS: PCP Family Medicine; Visit Provider Nurse Practitioner Family
DX: Z12.31 Encounter for screening mammogram for malignant neoplasm of breast (principal)
CPT/HCPCS: 77063; 77067

== ENCOUNTER 2023-04-29 09:16 | Outpatient (CLI) | payer OTHER, SELFPAY ==
[2023-04-29 12:25] LABS: ALT 41 U/L (14-59); AST 27 U/L (15-37); Alkaline Phosphatase 73 U/L (46-116); Anion Gap 9.4 mmol/L (3-11); BUN 21 mg/dL (7-18); Bilirubin, Total 0.7 mg/dL (0.2-1.0); CO2 30.6 mmol/L (21.0-32.0); CREATININE 1.2 mg/dL (0.55-1.02); Calcium 9.3 mg/dL (8.5-10.1); Chloride 102 mmol/L (98-107); Estimated GFR 50.23 (mL/min/1.73m2); Glucose 118 mg/dL (74-106); Sodium 142 mmol/L (136-145); Total Protein 7.8 g/dL (6.4-8.2)
[2023-04-29 12:36] LABS: Potassium 2.8 mmol/L (3.5-5.1)
== END 2023-04-29 09:17 | disposition home or self-care (01) ==
LOC: LOS 09:17
PROVIDERS: PCP Family Medicine; Visit Provider Family Medicine
DX: Z00.00 Encounter for general adult medical examination without abnormal findings (principal); I10 Essential (primary) hypertension; K21.9 Gastro-esophageal reflux disease without esophagitis
CPT/HCPCS: 36415; 80053

== ENCOUNTER → 2023-05-30 03:30 | Outpatient (CLI) | payer OTHER, SELFPAY ==
--- NOTE | 2023-05-30 07:00 | DI.MAMMO_ITS ---
Exam(s) MAMMO SCREENING EXAM: MAMMO SCREENING CLINICAL HISTORY: SCREENING, Z12.39. TECHNIQUE: Bilateral full field digital CC and MLO mammographic images were obtained with 3D tomosyn thesis and utilizing computer aided detection (CAD). COMPARISON: Prior mammograms were reviewed. FINDINGS: There has been no significant change in the appearance and distribution of the fibroglandular tissue. There are no CAD designations. There are no new spiculated masses nor malignant appearing microcalcification groups. There is no significant architectural distortion nor skin thickening-retraction. IMPRESSION: No radiographic evidence of malignancy. BI-RADS Category 1 - Negative Breast Density - Category B - Scattered areas of fibroglandular density Breast density Category C or D implies that the patient has dense breast tissue. Dense breast tissue can make it harder to find cancer on a mammogram. Dense breast tissue is also associated with an incr eased risk of breast cancer. This information about the result of the mammogram report was provided to the patient to raise their awareness. Use this report when you speak with the patient about their risks for breast cancer, which includes their family history. At that time, you may recommend additional screening tests (Ultrasoun d or MRI) as these tests may add significant information. A negative radiographic report should not delay biopsy if a dominant or clinically suspicious mass is present. Up to ten percent of cancers are not identified on mammography. A negative report may reinforce clinical impression. Adenosis and dense breasts may obscure an underlying neoplasm. False positive reports average 6 to 10%. Patient will receive a letter notifying them of these results.
--- NOTE | 2023-05-30 07:00 | DI.DEXA_ITS ---
Exam(s) XR DEXA BONE DENSITY W/WO MATTHIEU EXAM: XR DEXA BONE DENSITY W/WO MATTHIEU CLINICAL HISTORY: SCREENING FOR OSTEOPOROSIS IN POSTMENOPAUSAL WOMAN,Z78.0 TECHNIQUE: Routine DEXA evaluation of the lumbar spine, hip, or forearm. COMPARISON: Prior DEXA scan performed in 2006 FINDINGS: Performed on a [employer] unit. Lateral image: No compression fracture evident. Lumbar Spine total T-score: 1.1. Prior reading in 2006 was 1.0 Hip total T-score:-0.4. Prior reading in 2006 was 0.5 Independent reading at the level of the femoral neck yields T-score of -0.2 Forearm total T-score: 0.0 IMPRESSION: Bone mineral density measures in the normal range. Fracture risk is low. Note: Any spine fracture indicates 5x risk for subsequent spine fracture and 2x risk for subsequent h ip fracture. World Health Organization criteria for BMD interpretation classify patients: Normal...... T- Score at or above -1.0 Osteopenic... T- Score between -1.0 and -2.5 Osteoporosis... T-Score at or below -2.5
== END ==
PROVIDERS: PCP Family Medicine; Visit Provider Family Medicine
DX: Z78.0 Asymptomatic menopausal state (principal); Z12.39 Encounter for other screening for malignant neoplasm of breast
CPT/HCPCS: 77063; 77067; 77080

== ENCOUNTER 2023-07-17 03:09 | Outpatient (CLI) | payer OTHER, SELFPAY ==
[2023-07-17 16:58] LABS: Anion Gap 8.2 mmol/L (3-11); BUN 21 mg/dL (7-18); CO2 29.8 mmol/L (21.0-32.0); CREATININE 1.1 mg/dL (0.55-1.02); Calcium 9.6 mg/dL (8.5-10.1); Chloride 103 mmol/L (98-107); Estimated GFR 55.42 (mL/min/1.73m2); Glucose 113 mg/dL (74-106); Potassium 3.2 mmol/L (3.5-5.1); Sodium 141 mmol/L (136-145)
== END 2023-07-17 03:10 | disposition home or self-care (01) ==
LOC: LBO 03:09
PROVIDERS: PCP Family Medicine; Visit Provider Family Medicine
DX: E87.6 Hypokalemia (principal); I10 Essential (primary) hypertension
CPT/HCPCS: 36415; 80048

== ENCOUNTER 2023-09-06 17:45 | Outpatient (REF) | payer BC, SELFPAY | END 2023-09-06 17:46 | disposition home or self-care (01) | LOC: LBN 17:45 | PROVIDERS: PCP Family Medicine; Visit Provider Nurse Practitioner Family | DX: L02.91 Cutaneous abscess, unspecified (principal); B95.61 Methicillin susceptible Staphylococcus aureus infection as the cause of diseases classified elsewhere | CPT/HCPCS: 87077; 87070; 87186; 87205 ==

== ENCOUNTER 2023-10-23 01:35 | Outpatient (CLI) | payer BC, SELFPAY ==
[2023-10-23 16:45] LABS: Anion Gap 10.3 mmol/L (3-11); BUN 24 mg/dL (7-18); CO2 26.7 mmol/L (21.0-32.0); CREATININE 1.2 mg/dL (0.55-1.02); Chloride 108 mmol/L (98-107); Estimated GFR 49.92 (mL/min/1.73m2); Glucose 108 mg/dL (74-106); Potassium 3.9 mmol/L (3.5-5.1); Sodium 145 mmol/L (136-145)
== END 2023-10-23 01:36 | disposition home or self-care (01) ==
LOC: LBO 01:36
PROVIDERS: PCP Family Medicine; Visit Provider Family Medicine
DX: E87.6 Hypokalemia (principal); I10 Essential (primary) hypertension
CPT/HCPCS: 36415; 80048

== ENCOUNTER 2023-12-26 05:46 | Outpatient (CLI) | payer BC, SELFPAY ==
[2023-12-26 15:21] LABS: Anion Gap 11.1 mmol/L (3-11); BUN 21 mg/dL (7-18); CO2 27.9 mmol/L (21.0-32.0); CREATININE 1.2 mg/dL (0.55-1.02); Chloride 103 mmol/L (98-107); Estimated GFR 49.92 (mL/min/1.73m2); Glucose 114 mg/dL (74-106); Hemoglobin A1C 6.3 % (<5.7); Potassium 3.2 mmol/L (3.5-5.1); Sodium 142 mmol/L (136-145)
== END 2023-12-26 05:47 | disposition home or self-care (01) ==
LOC: LBO 05:46
PROVIDERS: PCP Family Medicine; Visit Provider Family Medicine
DX: E11.9 Type 2 diabetes mellitus without complications (principal); I10 Essential (primary) hypertension
CPT/HCPCS: 36415; 80048; 83036

== ENCOUNTER 2024-06-03 02:13 | Outpatient (CLI) | payer BC, SELFPAY ==
[2024-06-03 16:13] LABS: Hemoglobin A1C 6.2 % (<5.7)
[2024-06-03 16:58] LABS: ALT 36 U/L (14-59); AST 31 U/L (15-37); Albumin 4.1 g/dL (3.4-5.0); Alkaline Phosphatase 115 U/L (46-116); Anion Gap 8.5 mmol/L (3-11); BUN 23 mg/dL (7-18); Bilirubin, Total 0.55 mg/dL (0.2-1.0); CO2 28.5 mmol/L (21.0-32.0); CREATININE 1.3 mg/dL (0.55-1.02); Calcium 9.2 mg/dL (8.5-10.1); Calculated LDL 98 mg/dL (<100); Chloride 100 mmol/L (98-107); Cholesterol 191 mg/dL (<200); Estimated GFR 45.35 (mL/min/1.73m2); Glucose 82 mg/dL (74-106); HDL Cholesterol 51 mg/dL (40-60); Potassium 3.8 mmol/L (3.5-5.1); Sodium 137 mmol/L (136-145); Total Protein 7.4 g/dL (6.4-8.2); Triglyceride 212 mg/dL (<150)
[2024-06-04 10:47] LABS: Hepatitis C Ab w Rflx HCV PCR Negative (Negative)
== END 2024-06-03 02:14 | disposition home or self-care (01) ==
LOC: LBO 02:13
PROVIDERS: PCP Family Medicine; Visit Provider Family Medicine
DX: I10 Essential (primary) hypertension (principal); Z00.00 Encounter for general adult medical examination without abnormal findings; Z11.59 Encounter for screening for other viral diseases; E11.9 Type 2 diabetes mellitus without complications
CPT/HCPCS: 36415; 80053; 80061; 86803; 83036

== ENCOUNTER 2024-06-12 00:43 | Outpatient (CLI) | payer BC, SELFPAY ==
--- NOTE | 2024-06-12 07:44 | DI.MAMMO_ITS ---
Exam(s) MAMMO SCREENING EXAM: MAMMO SCREENING CLINICAL HISTORY: screening,z12.39. TECHNIQUE: Bilateral full field digital CC and MLO mammographic images were obtained with 3D tomosyn thesis and utilizing computer aided detection (CAD). COMPARISON: Prior mammograms were reviewed. FINDINGS: In the left breast the CC view there is a new small 3 mm nodule located centrally, approximately 6 cm in from the nipple. Spot compression view and ultrasound recommended. In the right breast on the MLO view there is a small an benign-appearing nodular density located 5 cm in from the nipple but unchanged from prior mammograms dating back to 2019. There are no new spiculated masses nor new malignant appearing microcalcification groups. There is no significant architectural distortion nor skin thickening-retraction. IMPRESSION: In the left breast there is a new 3 millimeter asymmetric density-possible nodule described above. S pot compression CC view and ultrasound are recommended. BI-RADS Category 0 - Incomplete: Need additional imaging evaluation Breast Density - Category B - Scattered areas of fibroglandular density Breast density Category C or D implies that the patient has dense breast tissue. Dense breast tissue can make it harder to find cancer on a mammogram. Dense breast tissue is also associated with an incr eased risk of breast cancer. This information about the result of the mammogram report was provided to the patient to raise their awareness. Use this report when you speak with the patient about their risks for breast cancer, which includes their family history. At that time, you may recommend additional screening tests (Ultrasoun d or MRI) as these tests may add significant information. A negative radiographic report should not delay biopsy if a dominant or clinically suspicious mass is present. Up to ten percent of cancers are not identified on mammography. A negative report may reinforce clinical impression. Adenosis and dense breasts may obscure an underlying neoplasm. False positive reports average 6 to 10%. Patient will receive a letter notifying them of these results.
== END 2024-06-12 01:03 ==
LOC: DI 00:44
PROVIDERS: PCP Family Medicine; Visit Provider Family Medicine
DX: Z12.31 Encounter for screening mammogram for malignant neoplasm of breast (principal)
CPT/HCPCS: 77063; 77067

== ENCOUNTER 2024-06-17 02:31 | Outpatient (CLI) | payer BC, SELFPAY ==
--- NOTE | 2024-06-17 13:03 | DI.MAMMO_ITS ---
Exam(s) MG MAMMO SCREEN CALL BACK UNI US BREAST LT COMPLETE EXAM: MG MAMMO SCREEN CALL BACK UNI and U/S breast LT complete CLINICAL HISTORY: NEW 3 MILLIMETER ASYMMETRIC DENSITY-POSSIBLE NODULE LEFT R92.8 ABNL MAMMO. TECHNIQUE: Craniocaudal and mediolateral oblique Full Field Digital Mammography views of the left br east with Computer Aided Diagnosis followed by Tomosynthesis and left breast ultrasound. All 4 quadr ants of the left breast were evaluated sonographically. The axilla and retroareolar regions were als o evaluated. COMPARISON: Comparison is made with prior examinations. FINDINGS: Mammography/Tomosynthesis: Masses/Architectural Distortion: There is again seen a well-circumscribed small 3 mm nodule in the ce ntral left breast. There are no areas of architectural distortion. Microcalcifictions: No suspicious pleomorphic-type are seen. Skin Thickening/Nipple Retraction: None. Complete left breast US: Echotexture: Normal appearance of the glandular tissue. Shadowing: No suspicious foci. Cyst: None. Solid lesions: None seen. Ductal dilation: None. IMPRESSION: 1. No evidence of malignancy is noted. Well-circumscribed 3 mm left breast nodule probably reflecting a benign intraparenchymal lymph node. 2. Unless there is more urgent need, follow-up screening mammography is recommended, as per [place] [employer] guidelines. 3. The findings were discussed with the patient on the date of the examination. BI-RADS Category 2 - Benign Findings Breast Density - Category B - Scattered areas of fibroglandular density Breast density Category C or D implies that the patient has dense breast tissue. Dense breast tissue can make it harder to find cancer on a mammogram. Dense breast tissue is also associated with an incr eased risk of breast cancer. This information about the result of the mammogram report was provided to the patient to raise their awareness. Use this report when you speak with the patient about their risks for breast cancer, which includes their family history. At that time, you may recommend additional screening tests (Ultrasoun d or MRI) as these tests may add significant information. A negative radiographic report should not delay biopsy if a dominant or clinically suspicious mass is present. Up to ten percent of cancers are not identified on mammography. A negative report may reinforce clinical impression. Adenosis and dense breasts may obscure an underlying neoplasm. False positive reports average 6 to 10%. Patient will receive a letter notifying them of these results.
== END 2024-06-17 02:51 ==
LOC: DI 02:32
PROVIDERS: PCP Family Medicine; Visit Provider Family Medicine
DX: Z12.31 Encounter for screening mammogram for malignant neoplasm of breast (principal); R92.8 Other abnormal and inconclusive findings on diagnostic imaging of breast
CPT/HCPCS: 76642; 77063; 77067

== ENCOUNTER 2025-03-16 03:48 | Outpatient (CLI) | payer BC, SELFPAY ==
[2025-03-16 17:04] LABS: ALT 34 U/L (14-59); AST 21 U/L (15-37); Albumin 4.2 g/dL (3.4-5.0); Alkaline Phosphatase 113 U/L (46-116); Anion Gap 11.1 mmol/L (3-11); BUN 28 mg/dL (7-18); Bilirubin, Total 0.4 mg/dL (0.2-1.0); CO2 22.9 mmol/L (21.0-32.0); Calcium 9.0 mg/dL (8.5-10.1); Chloride 105 mmol/L (98-107); Estimated GFR 37.96 (mL/min/1.73m2); Glucose 93 mg/dL (74-106); Potassium 4.0 mmol/L (3.5-5.1); Sodium 139 mmol/L (136-145); Total Protein 7.4 g/dL (6.4-8.2)
== END 2025-03-16 03:49 | disposition home or self-care (01) ==
PROVIDERS: PCP Family Medicine; Visit Provider Family Medicine
DX: I10 Essential (primary) hypertension (principal)
CPT/HCPCS: 36415; 80053

== ENCOUNTER 2025-04-13 03:28 | Outpatient (CLI) | payer BC, SELFPAY ==
[2025-04-13 17:36] LABS: ALT 30 U/L (14-59); AST 20 U/L (15-37); Albumin 4.0 g/dL (3.4-5.0); Alkaline Phosphatase 96 U/L (46-116); Anion Gap 12.5 mmol/L (3-11); BUN 25 mg/dL (7-18); Bilirubin, Total 0.3 mg/dL (0.2-1.0); CO2 23.5 mmol/L (21.0-32.0); Calcium 8.9 mg/dL (8.5-10.1); Chloride 105 mmol/L (98-107); Estimated GFR 49.61 (mL/min/1.73m2); Glucose 78 mg/dL (74-106); Potassium 4.2 mmol/L (3.5-5.1); Sodium 141 mmol/L (136-145); Total Protein 7.1 g/dL (6.4-8.2)
== END 2025-04-13 03:29 | disposition home or self-care (01) ==
PROVIDERS: PCP Family Medicine; Visit Provider Family Medicine
DX: I10 Essential (primary) hypertension (principal)
CPT/HCPCS: 36415; 80053

== ENCOUNTER → 2025-07-07 02:19 | Outpatient (CLI) | payer BC, SELFPAY ==
--- NOTE | 2025-07-07 06:15 | DI.MAMMO_ITS ---
Exam(s) MAMMO SCREENING EXAM: MAMMO SCREENING CLINICAL HISTORY: screening,z12.39. TECHNIQUE: Bilateral full field digital CC and MLO mammographic images were obtained with 3D tomosynthesis and utilizing computer aided detection (CAD). COMPARISON: Prior mammograms were reviewed. Prior ultrasound 06/17/2024 also reviewed. FINDINGS: There has been no significant change in the appearance and distribution of the fibroglandular tissue. In the left breast the previously described small nodule is no longer evident, further evidence that it was benign. Small nodule in the right breast on the MLO view is again unchanged from 2016 There are no new spiculated masses nor malignant appearing microcalcification groups. There is no significant architectural distortion nor skin thickening-retraction. IMPRESSION: No radiographic evidence of malignancy. BI-RADS Category 2 - Benign Findings Breast Density - Category B - There are scattered areas of fibroglandular density. Breast density Category C or D implies that the patient has dense breast tissue. Dense breast tissue can make it harder to find cancer on a mammogram. Dense breast tissue is also associated with an increased risk of breast cancer. This information about the result of the mammogram report was provided to the patient to raise their awareness. Use this report when you speak with the patient about their risks for breast cancer, which includes their family history. At that time, you may recommend additional screening tests (Ultrasound or MRI) as these tests may add significant information. A negative radiographic report should not delay biopsy if a dominant or clinically suspicious mass is present. Up to ten percent of cancers are not identified on mammography. A negative report may reinforce clinical impression. Adenosis and dense breasts may obscure an underlying neoplasm. False positive reports average 6 to 10%. Patient will receive a letter notifying them of these results.
== END ==
LOC: DI 02:19
PROVIDERS: PCP Family Medicine; Visit Provider Family Medicine
DX: Z12.31 Encounter for screening mammogram for malignant neoplasm of breast (principal); R92.323 Mammographic fibroglandular density, bilateral breasts
CPT/HCPCS: 77063; 77067

== ENCOUNTER 2025-07-14 01:53 | Outpatient (CLI) | payer BC, SELFPAY ==
[2025-07-14 16:56] LABS: Vitamin B12 374 pg/mL (211-911)
== END 2025-07-14 01:54 | disposition home or self-care (01) ==
LOC: LBO 01:53
PROVIDERS: PCP Family Medicine; Visit Provider Family Medicine
DX: E53.8 Deficiency of other specified B group vitamins (principal)
CPT/HCPCS: 36415; 82607

== ENCOUNTER 2025-08-19 09:02 | Outpatient (REF) | payer BC, SELFPAY ==
--- NOTE | 2025-08-19 09:00 | VUL_PTH ---
PATIENT: Latricia Sandy LOC: [facility] U#:[id number] AGE/SX: 70/F ROOM: RE08/19/[address]: Helen Emanuel MD : 1955 BED: DIS: 08/19/2025 SPEC #: [id number] RECD: 08/19/25 13:03 STATUS: LUZMA REIwona #: [id number] YOLIS: 08/19/25 09:[address]: Helen Emanuel DEPT: Surgical Specimen RECD BY: Fiona Melton ENTERED: 08/19/25 13:04 SP TYPE: VUL OTHR DR: Kirstie Nation MD, DC Tissues: 1 - VULVA BIOPSY 2 - CERVICAL BIOPSY Procedures: GROSS AND MICRO LEVEL 4 Comments: [id number]
== END 2025-08-19 09:03 | disposition home or self-care (01) ==
LOC: LBN 09:02
PROVIDERS: PCP Family Medicine; Visit Provider Obstetrics & Gynecology
DX: N88.8 Other specified noninflammatory disorders of cervix uteri (principal)
CPT/HCPCS: 88305